=== PATIENT | female | born 1995 | race Caucasian/White ===

== ENCOUNTER 2021-07-28 22:11 | Emergency (ER) | payer SELFPAY ==
[~2021-07-28] VITALS: Ht 177.8 cm; Wt 87.1 kg
--- NOTE | 2021-07-28 22:28 | NUR ---
Dr Brambila at bedside, MSE in progress.
[2021-07-28] MEDS ORDERED: ESCI5TAB PO (22:31)
[2021-07-28] MEDS ORDERED: LEVO150T8 PO (22:31)
[2021-07-28] MEDS ORDERED: IBUPROFEN 600 MG TABLET ONE (22:42)
[2021-07-28] MEDS ORDERED: OXYCODONE/APAP 5-325 MG TABLET ONE (22:42)
[2021-07-28] MEDS ORDERED: OXYCODONE/APAP 5-325 MG TABLET PO ONE (22:45)
[2021-07-28] MEDS ORDERED: IBUPROFEN 600 MG TABLET PO ONE (22:45)
[2021-07-28] MEDS ORDERED: CYCLOBENZAPRINE HCL 10 MG TABLET ONE (23:43)
[2021-07-28] MEDS ORDERED: CYCLOBENZAPRINE HCL 10 MG TABLET PO ONE (23:45)
[2021-07-29] MEDS ORDERED: HYDR-4209 PO (00:01)
[2021-07-29] MEDS ORDERED: CYCL10TA9 PO (00:01)
--- NOTE | 2021-07-29 00:19 | NUR ---
Patient discharged to home in stable condition. Written and verbal after care instructions given. Patient verbalizes understanding of instructions. Stressed follow up or return to ER for worsening s/s. pt ambulated with steady gait. denies pain. no SOB. no chest pain. AOx4
[2021-07-29 00:22] VITALS: BP 131/72
== END 2021-07-29 00:23 | disposition home or self-care (01) ==
LOC: ER 22:16
DX: S16.1XXA Strain of muscle, fascia and tendon at neck level, initial encounter (principal); M25.562 Pain in left knee; M54.50 Low back pain, unspecified; V49.69XA Unspecified car occupant injured in collision with other motor vehicles in traffic accident, initial encounter; Y92.410 Unspecified street and highway as the place of occurrence of the external cause; F17.210 Nicotine dependence, cigarettes, uncomplicated; E03.9 Hypothyroidism, unspecified; Z79.890 Hormone replacement therapy
CPT/HCPCS: 72072; 72100; 72125; A4663